=== PATIENT | male | born 1960 | race Caucasian/White ===

== ENCOUNTER → 2021-03-27 | Outpatient (CLI) | payer BC ==
[2021-03-27 17:48] LABS: Basophils # (A) 0.03 X 10*3/uL (0.00-0.10); Basophils % (A) 0.7 %; Eosinophils % (A) 2.3 %; HCT 51.5 % (39.6-50.0); HGB 17.2 g/dL (13.0-17.0); Lymphocytes # (A) 1.46 X 10*3/uL (0.90-5.00); Lymphocytes % (A) 33.1 %; MCHC 33.4 g/dL (32.0-37.0); MCV 89.9 fL (80.0-97.0); Mean Platelet Volume 11.7 fL (9.5-12.2); Monocytes # (A) 0.43 X 10*3/uL (0.20-1.00); Monocytes % (A) 9.8 %; Neutrophils # (A) 2.38 X 10*3/uL (1.80-7.70); Neutrophils % (A) 53.9 %; Platelet Count 216 X 10*3/uL (140-440); RBC 5.73 X 10*6/uL (4.40-5.60); RDW 13.3 % (11.5-14.5); WBC 4.41 X 10*3/uL (4.50-10.00)
[2021-03-27 22:47] LABS: African American GFR (CKD) 69.7 (60.0-200.0); Albumin 4.5 g/dL (3.80-4.90); Albumin/Globulin Ratio 1.61 (1.60-3.17); BUN/Creat Ratio 17.69 Ratio (12.00-20.00); Calcium 9.6 mg/dL (8.7-10.3); Chol/HDL Ratio 4.51; Globulin 2.8 g/dL (1.6-3.3); Non-African American GFR(CKD) 60.1 (60.0-200.0); Potassium 4.7 mmol/L (3.5-5.5); Total Bilirubin 0.9 mg/dL (0.3-1.2); Total Protein 7.3 g/dL (6.2-8.2)
[2021-03-27 22:55] LABS: Prostate Specific Antigen 1.6 ng/mL (0.0-3.5); T4, Free (Free Thyroxine) 0.9 ng/dL (0.80-1.80)
== END | disposition home or self-care (01) ==
LOC: LABWHC1 08:39
PROVIDERS: ATTEND Nurse Practitioner
DX: Z00.00 Encounter for general adult medical examination without abnormal findings (principal); Z12.5 Encounter for screening for malignant neoplasm of prostate; U07.1 COVID-19
CPT/HCPCS: 36415; 80053; 80061; 84153; 84439; 84443; 85025; 86769